=== PATIENT | male | born 1970 | race African-American/Black ===

== ENCOUNTER → 2018-12-14 | Outpatient (CLI) | payer MEDICARE, MEDICAID, SELFPAY | PROVIDERS: PCP Internal Medicine; Visit Provider Internal Medicine | DX: R55 Syncope and collapse (principal) | CPT/HCPCS: 93017; 78452; A9502; J2785 ==

== ENCOUNTER → 2019-01-08 | Outpatient (CLI) | payer MEDICARE, MEDICAID, SELFPAY | PROVIDERS: PCP Internal Medicine; Visit Provider Internal Medicine | DX: N17.9 Acute kidney failure, unspecified (principal) | CPT/HCPCS: 76775; 93976 ==

== ENCOUNTER 2019-04-04 01:21 | Day surgery (SDC) | payer MEDICARE, MEDICAID, SELFPAY ==
[2019-03-22 09:12] VITALS: BMI 24.3
--- NOTE | 2019-04-02 15:41 | HP_ITS ---
DATE OF SERVICE: HISTORY: A 48-year-old with followup on his sinuses. He has multiple sinus issues. He has been on antibiotics and medications are prolonged. PHYSICAL EXAMINATION: CHEST: Clear. HEART: Without murmurs. ABDOMEN: Soft. EXTREMITIES: Negative. REVIEW OF SYSTEMS: Unremarkable. He has been on prednisone and Augmentin. A CAT scan shows soft tissue thickening of the left frontal sinus and minimal soft tissue thickening of the ethmoid sinuses. D I MT: Tony
[2019-04-04] VITALS (8 sets, daily range): BP systolic 109–134; BP diastolic 62–90; PULSE 48–71; RESP 15–20; TEMP 36.6–36.8; O2SAT 96–100
--- NOTE | 2019-04-04 06:32 | WPDHPUPDATE1 ---
History and Physical Update Update Date/Time: 04/04/19 06:32 History and Physical has been reviewed, including an updated exam of the patient. There are NO changes in the patient's condition. Risks, benefits, and alternatives have been discussed and questions answered. Patient agrees to proceed with procedure. functional sinus surgery
--- NOTE | 2019-04-04 06:34 | WPDHPUPDATE1 ---
History and Physical Update Update Date/Time: 04/04/19 06:34 History and Physical has been reviewed, including an updated exam of the patient. There are NO changes in the patient's condition. Risks, benefits, and alternatives have been discussed and questions answered. Patient agrees to proceed with procedure.
--- NOTE | 2019-04-04 08:59 | WPDANESEPPF ---
Anes - Initial Pre Proc Eval Procedure: Operation Date: 04/04/19 10:00 Proposed Procedures p Functional Endoscopic Sinus Surgery with Fusion - Kali Contreras MD Date/Time: 04/04/19 08:59 Surgeon: Kali Contreras MD Pre Op Diagnosis: chronic sinusitis Patient Data Age: 48 Gender: M Height: 6 ft 4 in Weight: 91.75 kg Last Vital Signs Temp 36.8 C 04/04/19 08:30 Pulse 67 04/04/19 08:30 Resp 18 04/04/19 08:30 BP 134/82 04/04/19 08:30 Pulse Ox 98 04/04/19 08:30 Allergies Allergy/AdvReac Type Severity Reaction Status Date / Time codeine Allergy Unknown severe Verified 03/22/19 09:12 abdominal pain Home Medications Medication Instructions Recorded Confirmed Type bimatoprost 1 drp OPHTHALMIC (EYE) DAILY 03/22/19 03/22/19 History brimonidine-timolol [Combigan] 2 drp OPHTHALMIC (EYE) DAILY 03/22/19 03/22/19 History Patient hx anesthesia problems: none Family hx anesthesia problems: none PMFSH Past Medical History Medical History (Updated 04/04/19 @ 09:00 by Oliver Dunham MD) Blindness Smoker Tobacco abuse Family History Family History Father Diabetes mellitus Malignant neoplasm of prostate Family history of lung cancer Mother Diabetes mellitus Hypertension Family history of cardiovascular disease Social History Social History Smoking status: Current every day smoker Alcohol intake: current Anes - Eval Final PreProcedure Day of Procedure 04/04/19 08:59 Patient weight: normal Heart: regular rate and rhythm Lungs: decreased breath sounds Airway: Mallampati scale class 1 Neurological: alert and oriented Last oral intake: >/= 8 hours ASA classification: III Emergent: no Anesthetic plan: proceed Anesthesia type and monitoring: general ETT and standard monitoring Informed Consent: The patient's anesthetic plan and its attendant risks and benefits were discussed with the patient/family/POA. Questions were solicited and answers provided to the satisfaction of the patient/family/POA.
[2019-04-04] MEDS: LACTATED RINGERS 1,000 ML 30 ML IV CONT ×2 (09:00→11:04)
[2019-04-04] MEDS: LIDO 1%/EPINEPHRINE 1:100,000 20 ML VIAL 3 ML INFILTRATE (09:51)
--- NOTE | 2019-04-04 10:25 | PM.OP ---
Procedure Note - Brief Procedure Note - Brief Date of procedure: 04/04/19 Pre-op diagnosis: chronic sinusitis Post-op diagnosis: same Procedure performed: Testing patient was prepped and draped the fascial anesthesia the nose was packed with Afrin impregnated cottonoids injected with xylocaine with adrenaline with the aid of a 0 degree endoscope. On the right side the middle turbinate was medium media medialized micro debrided was used to remove the uncinate and the ethmoid bulla was opened as well as the posterior ethmoid. The natural os to the maxillary antrum was opened and enlarged this procedure was repeated identically on the other side with similar findings packed with hematuria and patient awakened returned to recovery in good condition Anesthesia: GLMA Surgeon: Kali Contreras MD Estimated blood loss (mL): 10 Drains: No Packing: Yes (hemaderm) Pathology: none sent Complications: No immediate complications Condition: stable Disposition: PACU
== END 2019-04-04 12:40 | disposition home or self-care (01) ==
PROVIDERS: PCP Internal Medicine; Visit Provider Otolaryngology
PROC: (CPT 31256; principal; 2019-04-04 10:00)
DX: J32.9 Chronic sinusitis, unspecified (principal); F17.210 Nicotine dependence, cigarettes, uncomplicated
CPT/HCPCS: 31256; 31255; 61782; A9270; J0131; J0330; J2250; J2405; J2704; J3010; J7120

== ENCOUNTER 2019-10-05 10:18 | Emergency (ER) | payer MEDICARE, MEDICAID, SELFPAY ==
--- NOTE | ~2019-10-05 | XR_ITS ---
EXAMINATION: XR chest 1V portable DATE: 10/05/2019 10:56 INDICATION: Cough and fever TECHNIQUE: frontal view of the chest was obtained. COMPARISON: Chest radiograph dated 01/29/2019 FINDINGS: Calcified nodule in the left lower lung zone consistent with old granulomatous disease. No other airs pace opacities, pulmonary edema, pleural effusion or pneumothorax. The cardiomediastinal silhouette i s normal. A few surgical clips at the right axilla. IMPRESSION: 1. No acute cardiopulmonary disease. Reviewed, dictated and finalized at location A.
[2019-10-05 10:26] VITALS: BP 127/78; PULSE 110; RESP 14; TEMP 39.3; O2SAT 97
--- NOTE | 2019-10-05 10:40 | ECG_ITS ---
Measurements Intervals Miles Rate: 101 P: 55 WV: 137 QRS: 11 QRSD: 94 T: 31 QT: 322 QTc: 419 Interpretive Statements SINUS TACHYCARDIA BORDERLINE T WAVE ABNORMALITY- INFERIOR LEADS ABNORMAL ECG Electronically Signed On 10-05-2019 13:22:13 CDT by Feliciano Mejia D.O.
[2019-10-05 11:00] LABS: Hematocrit 36.5 % (42.0-52.0); Hemoglobin 13.2 g/dL (14.0-18.0); Mean Corpuscular HGB Conc 36.2 g/dl (32-36); Mean Corpuscular Hemoglobin 31.1 pg (26-34); Mean Corpuscular Volume 86.1 fl (80-100); Mean Platelet Volume 10.7 fl (7.4-10.4); Platelet Count Result 161 k/mm3 (150-375); Red Blood Count 4.24 M/mm3 (4.6-6.20); Red Cell Distribution Width 13.2 % (11.5-14.5); White Blood Count 11.1 K/mm3 (4.5-10.0)
--- NOTE | 2019-10-05 11:00 | ED.FEVER ---
HPI - Fever General Chief Complaint: Fever Stated Complaint: Fever Time Seen by Provider: 10/05/19 10:47 History of Present Illness HPI Narrative: 48 yo male w/ h/o sarcoidosis, blindness 2/2 glaucoma presents to the ED from home for fever. He reports that he has had high fevers for the past 4 days. He has bee able to temporarilly control them with antipyretics, but the continue to return. He denies any localizing symptoms. He does state that he is sore everywhere and he has no appetite. 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 Related Data Home Medications Medication Instructions Recorded Confirmed Combigan 2 drp OPHTHALMIC (EYE) DAILY 03/22/19 09/05/19 Allergies Allergy/AdvReac Type Severity Reaction Status Date / Time codeine Allergy Severe severe Verified 10/05/19 10:32 abdominal pain Review of Systems Review of Systems: All systems reviewed & are unremarkable except as noted in HPI and below Constitutional: Constitutional: Reports chills and Reports fever(s) ENT: Denies sore throat Cardiovascular: Cardiovascular: Denies chest pain Respiratory: Respiratory: Denies cough and Denies dyspnea Gastrointestinal: Gastrointestinal: Denies abdominal pain, Denies constipation, Denies diarrhea, Reports nausea and Denies vomiting Genitourinary: Genitourinary: Denies hematuria, Denies oliguria and Denies dysuria Musculoskeletal: Musculoskeletal: Reports myalgias Neurologic: Denies dizziness, Denies headache(s), Denies numbness and Denies weakness Endocrine: Endocrine: Denies polydipsia Hematologic/Lymphatic: Hematologic/Lymphatic: Denies easy bleeding and Denies easy bruising PMFSH Past Medical History Medical History Blindness Chronic rhinitis Glaucoma Sarcoid Smoker Syncope and collapse Tobacco abuse Surgical History Surgical History H/O sinus surgery Family History Family History Father Diabetes mellitus Malignant neoplasm of prostate Family history of lung cancer Mother Diabetes mellitus Hypertension Family history of cardiovascular disease Social History Social History Smoking status: Current every day smoker Alcohol intake: current Gender identity (if verbalized by the patient): Male Sexual Orientation (if Verbalized by the Patient): Straight or Heterosexual Course Vital Signs Vital signs: Vital Signs Temperature 39.3 C H 10/05/19 10:26 Pulse Rate 110 H 10/05/19 10:26 Respiratory Rate 14 10/05/19 10:26 Blood Pressure 127/78 10/05/19 10:26 Pulse Oximetry 97 10/05/19 10:26 Temperature 37.2 C 10/05/19 13:36 Pulse Rate 83 10/05/19 13:36 Respiratory Rate 18 10/05/19 13:36 Blood Pressure 120/83 10/05/19 13:36 Pulse Oximetry 98 10/05/19 13:36 MDM - Fever MDM Narrative Medical decision making narrative: Labs support mild dehdration and possible developing ATN. Chest x-ray negative. Attempted to swab him for COVID-19. He refused. He does not believe that he has it and apprently told the nurse that you can get it from the swabs. Medical Records Attestation: I reviewed the patient's medical records. Lab Data Attestation: I reviewed the patient's lab results. Result diagrams: 10/05/19 10:48 10/05/19 10:48 Labs: Lab Results 10/05/19 10/05/19 10/05/19 Range/Units 10:48 10:48 10:48 WBC 11.1 H (4.5-10.0) K/mm3 RBC 4.24 L (4.6-6.20) M/mm3 Hgb 13.2 L (14.0-18.0) g/dL Hct 36.5 L (42.0-52.0) % MCV 86.1 (80-100) fl MCH 31.1 (26-34) pg MCHC 36.2 H (32-36) g/dl RDW 13.2 (11.5-14.5) % Plt Count 161 (150-375) k/mm3 MPV 10.7 H (7.4-10.4) fl Immature Gran % (Auto) Not Reportable
[2019-10-05 11:12] LABS: Add Urine Microscopic? YES; Appearance Urine Clear (Clear); Bacteria Urine Trace /hpf; Bilirubin Urine Negative (Negative); Blood Urine 1+ (Negative); Color Urine Amber (Yellow); Glucose Urine UA Negative (Negative); Ketones Urine Negative (Negative); Lactic Acid Reflex 1.6 mmol/L (0.7-2.1); Leukocyte Esterase Ur Negative LEU/UL (Negative); Mucus Urine Rare /lpf; Nitrate Urine Negative (Negative); Protein Urine 2+ mg/dL (Negative); Squamous Epithelial Cell Urine Occasional /hpf (Few)
[2019-10-05 11:13] LABS: Specific Grav Ur 1.033 (1.001-1.035)
[2019-10-05 11:16] LABS: INR 1.1; Prothrombin Time 14.3 Seconds (11.1-14.7)
[2019-10-05] MEDS: SODIUM CHLORIDE 0.9% IV 1,000 ML 999 ML IV CONT (11:16)
[2019-10-05] MEDS: KETOROLAC 30 MG/ML VIAL (*BKC) IV PUSH (11:16)
[2019-10-05] MEDS: ONDANSETRON INJ 4 MG/2 ML VIAL IV PUSH (11:17)
[2019-10-05 11:18] LABS: Band Neutrophils Percent 1 % (0-6); Lymphocytes Absolute Manual 2.88 K/mm3 (1.1-4.5); Monocytes Absolute Manual 0.33 K/mm3 (0.1-0.90); Monocytes Percent Manual 3 % (3-9); Neutrophils Absolute Manual 7.88 K/mm3 (1.3-6.7); Neutrophils Percent Manual 70 % (46-73); Partial Thromboplastin Time 53.5 SECONDS (22.3-36.8); Platelet Estimate Adequate (Adequate); Total Cells Counted 100
--- NOTE | 2019-10-05 11:24 | PC.NURSE ---
RN at bedside to Covid swab pt. Pt states I want to wait to get the swab until i know there is nothing in my blood or urine. I have read online that some of the swabs contain covid and can cause me to get covid. i also read online that the swabs are not acurate, that they swabbed a goat and that it is coming back positive. I would rather wait until after everything else comes back prior to deciding if i want swabbed or not.
[2019-10-05 11:26] VITALS: BP 120/78; PULSE 95; RESP 23; O2SAT 100
[2019-10-05 11:27] LABS: Alanine Aminotransferase 58 U/L (4-50); Albumin Level 4.1 g/dL (3.5-5.1); Alkaline Phosphatase 118 U/L (38-126); Aspartate Amino Transferase 79 U/L (17-59); Bilirubin,Total 1.5 mg/dL (0.2-1.3); Blood Urea Nitrogen 17 mg/dL (9-20); CRP 18.6 mg/dL (<1.0); Calcium 8.7 mg/dL (8.4-10.2); Carbon Dioxide 21 mmol/L (22-30); Chloride 99 mmol/L (98-107); Estimated CRCL calculation 65 ml/min; Estimated Glomerular Filt Rate 60; Glucose 127 mg/dL (75-110); Potassium 3.6 mmol/L (3.4-5.0); Sodium 131 mmol/L (137-145)
[2019-10-05 12:30] VITALS: BP 108/67; PULSE 88; RESP 12; TEMP 37.1; O2SAT 99
[2019-10-05 12:31] VITALS: TEMP 37.1
--- NOTE | 2019-10-05 12:31 | PC.NURSE ---
Patient refusing to have covid swab at this time, Dr. Astudillo notified.
--- NOTE | 2019-10-05 12:57 | PC.NURSE ---
Called to patients room at this time, updated patient/girlfriend of awaiting Dr. Cunningham call back. Girlfriend upset at this time, states it's just assanine that they want to do a covid test on him. Advised patient/family that is hospital policy that anyone with fever and since patient has fever of unknown origin that a covid swab is ordered. Patient continue to refuse covid swab at this time. Girlfriend states we will just follow up with Dr. Cunningham on Monday.
[2019-10-05 13:23] VITALS: BP 109/65; PULSE 86; RESP 15; O2SAT 100
[2019-10-05 13:36] VITALS: BP 120/83; PULSE 83; RESP 18; TEMP 37.2; O2SAT 98
--- NOTE | 2019-10-05 13:38 | PC.NURSE ---
pt offered covid-19 swab again, friend/spouse is refusing and pt verbalized that he doesn't want a swab, and he wished we weren't continuously offering it to him.
== END 2019-10-05 13:39 | disposition home or self-care (01) ==
PROVIDERS: Emergency Provider Emergency Medicine; PCP Internal Medicine
DX: B34.9 Viral infection, unspecified (principal); D86.9 Sarcoidosis, unspecified; H54.3 Unqualified visual loss, both eyes; H40.9 Unspecified glaucoma; F17.200 Nicotine dependence, unspecified, uncomplicated; R00.0 Tachycardia, unspecified
CPT/HCPCS: 36415; 71045; 80053; 81001; 83605; 85025; 85610; 85730; 86140; 87040; 87086; 93005; 96361; 96365; 96375; 99284; J0131; J1885; J2405; J7030

== ENCOUNTER 2020-06-17 14:42 | Outpatient (CLI) | payer MEDICARE, MEDICAID, SELFPAY ==
[2020-06-17 15:21] LABS: Hemoglobin A1C 5.1 % (<5.7)
== END 2020-06-17 14:43 | disposition home or self-care (01) ==
PROVIDERS: PCP Internal Medicine; Visit Provider Nurse Practitioner
DX: R73.9 Hyperglycemia, unspecified (principal)
CPT/HCPCS: 36415; 83036